=== PATIENT | female | born 2000 | race Caucasian/White ===

== ENCOUNTER 2021-06-21 20:50 | Outpatient (CLI) | payer OTHER ==
[2021-06-21] MEDS ORDERED: LACTATED RINGERS 1,000 ML IV SCH (21:15)
[2021-06-21 21:32] LABS: Basophils % (A) 0 %; Eosinophils # (A) 0.2 k/uL (0-0.7); Eosinophils % (A) 1 %; HCT 31.1 % (34.0-46.0); HGB 10.4 gm/dL (11.4-16.0); Lymphocytes # (A) 1.7 k/uL (1.0-4.8); Lymphocytes % (A) 15 %; MCH 31.4 pg (25.0-35.0); MCHC 33.4 g/dL (31.0-37.0); Mean Platelet Volume 10.8; Monocytes # (A) 0.5 k/uL (0-1.0); Monocytes % (A) 4 %; Neutrophils # (A) 8.7 k/uL (1.3-7.7); Neutrophils % (A) 77 %; Platelet Count 202 k/uL (150-450); RBC 3.31 m/uL (3.80-5.40); RDW 13.1 % (11.5-15.5); WBC 11.4 k/uL (3.8-10.6)
[2021-06-21 21:41] LABS: ALT 19 U/L (4-34); AST 29 U/L (14-36); African American GFR (CKD) >90 (>60 ml/min/1.73 sqM); Blood Urea Nitrogen 15 mg/dL (7-17); LDH 533 U/L (313-618); Non-African American GFR(CKD) >90 (>60 ml/min/1.73 sqM); Uric Acid 6.8 mg/dL (3.7-7.4)
[2021-06-21 21:45] LABS: Appearance,Urine Clear (Clear); Bilirubin,Urine Negative (Negative); Blood,Urine Negative (Negative); Color,Urine Colorless; Glucose,Urine (UA) Negative (Negative); Ketones,Urine Negative (Negative); Leukocyte Esterase,Urine Negative (Negative); Nitrite,Urine Negative (Negative); PH, Urine 6.5 (5.0-8.0); Protein,Urine 2+ (Negative); Specific Gravity,Urine 1.007 (1.001-1.035); Urobilinogen,Urine <2.0 mg/dL (<2.0); WBC,Urine 1 /hpf (0-5)
--- NOTE | 2021-06-21 22:11 | US ---
EXAMINATION TYPE: US OB >= 14 wk fetus DATE OF EXAM: 06/21/2021 COMPARISON: None CLINICAL HISTORY: Complete OB ultrasound for bleeding TECHNIQUE: Transabdominal (TA) GESTATIONAL AGE / DATING Physician Established: (32 weeks/4 days) EDC: 08/12/2021 Dates by LMP: LMP unknown Dates by First Scan: No previous this is first scan Dates by Current Scan: (33 weeks/6 days) EDC: 08/03/2021 SURVEY IUP: Single PLACENTA: Anterior PREVIA: No Previa KAROLINA: 16.9 cm Normal CERVICAL LENGTH (transabdominal: norm > 3.0cm): 3.3 cm BIOMETRY PRESENTATION: Vertex LIE: Longitudinal BPD: 8.7 cm 35 weeks / 0 days HC: 30.9 cm 34 weeks / 4 days AC: 29.1 cm 33 weeks / 1 days FL: 6.2 cm 32 weeks / 2 days ESTIMATED WEIGHT IN GRAMS: 2123 grams ESTIMATED WEIGHT IN LBS/OZ: 4 lbs. 11 oz. WEIGHT PERCENTAGE BASED ON ESTABLISHED DATES: 58% HC/AC: 1.06 Normal FL/AC: 21% Normal HEART RATE: 142 bpm RHYTHM: Normal IMPRESSION: No evidence of placenta previa or placental abruption. Amniotic fluid appears normal. No complicating process seen.
[2021-06-21 22:54] LABS: Protein/Creatinine Ratio,Urine 8.771
[2021-06-21] MEDS ORDERED: MAGNESIUM SULFATE-WATER PMX 20 GM in WATER FOR INJECTION 1 500ML.BAG IV SCH (23:00)
[2021-06-21] MEDS ORDERED: MAGNESIUM SULFATE-D5W PMX 1 GM in DEXTROSE/WATER 1 100ML.BAG IVPB SCH (23:00)
[2021-06-21] MEDS ORDERED: MAGNESIUM SULFATE-WATER PMX 4 GM in WATER FOR INJECTION 1 100ML.BAG IVPB STA (23:04)
[2021-06-21] MEDS ORDERED: BETAMET ACET-BETAMETH SOD PHOS 6 MG/ML MDV IM SCH (23:15)
--- NOTE | 2021-06-21 23:44 | P.HPOB ---
History of Present Illness H&P Date: 06/21/21 Chief Complaint: painless vaginal bleeding, pre-eclampsia 20-year-old presents at 32 weeks and 4 days complaining of painless vaginal bleeding starting at 2030 this evening. She is pam every 2-4 minutes but not feeling them. Her cervix is fingertip, 60% effaced, and -3 station. heart tones are 135 with moderate variability and reactive, category 1. Her blood pressures were found to be elevated and preeclamptic labs were run. All labs were normal except for PCR ratio of 8.77 with 2+ protein from a straight cath of urine. Ultrasound showed the baby to be 2123 g, 16 cm KAROLINA, vertex, and 50th percentile and no acute process of the placenta, no pr evia. Patient does have a B- blood type but did receive program at 28 weeks gestation. Review of Systems All systems: negative Constitutional: Denies chills, Denies fever Eyes: denies blurred vision, denies pain Ears, nose, mouth and throat: Denies headache, Denies sore throat Cardiovascular: Denies chest pain, Denies shortness of breath Respiratory: Denies cough Gastrointestinal: Denies abdominal pain, Denies diarrhea, Denies nausea, Denies vomiting Genitourinary: Denies dysuria, Denies hematuria Musculoskeletal: Denies myalgias Integumentary: Denies pruritus, Denies rash Neurological: Denies numbness, Denies weakness Psychiatric: Denies anxiety, Denies depression Endocrine: Denies fatigue, Denies weight change Past Medical History Past Medical History: No Reported History History of Any Multi-Drug Resistant Organisms: None Reported Past Surgical History: Ear Surgery Smoking Status: Never smoker Medications and Allergies Home Medications Medication Instructions Recorded Confirmed Type Pnv,Calcium 72/Iron/Folic Acid 1 tab PO DAILY 06/21/21 06/21/21 History [ Plus Tablet] Sertraline HCl [Zoloft] 50 mg PO DAILY 06/21/21 06/21/21 History Allergies Allergy/AdvReac Type Severity Reaction Status Date / Time No Known Allergies Allergy Verified 06/21/21 20:53 Exam Osteopathic Statement: *. No significant issues noted on an osteopathic structural exam other than those noted in the History and Physical/Consult. Intake and Output 06/21/21 06/21/21 06/22/21 14:59 22:59 06:59 Other: Weight 77.111 kg Heart: Regular rate and rhythm Lungs: Clear to auscultation bilaterally Abdomen: Soft, nontender Extremities: Negative Homans sign Results Result Diagrams: 06/21/21 21:24 06/21/21 21:24 Abnormal Lab Results - Last 24 Hours (Table) 06/21/21 06/21/21 Range/Units 21:24 21:24 WBC 11.4 H (3.8-10.6) k/uL RBC 3.31 L (3.80-5.40) m/uL Hgb 10.4 L (11.4-16.0) gm/dL Hct 31.1 L (34.0-46.0) % Neutrophils # 8.7 H (1.3-7.7) k/uL Urine Protein 2+ H (Negative) Assessment and Plan (1) 32 weeks gestation of Current Visit: Yes Status: Acute Code(s): Z3A.32 - 32 WEEKS GESTATION OF SNOMED Code(s): 0618174 (2) Vaginal bleeding in Current Visit: Yes Status: Acute Code(s): O46.90 - ANTEPARTUM HEMORRHAGE, UNSPECIFIED, UNSPECIFIED TRIMESTER SNOMED Code(s): 23159030713574770 (3) Pre-eclampsia Current Visit: Yes Status: Acute Code(s): O14.90 - UNSPECIFIED PRE- ECLAMPSIA, UNSPECIFIED TRIMESTER SNOMED Code(s): 720994434 Plan: 1. I had a long discussion with this patient and her mother about her condition of preeclampsia and why that may have caused the vaginal bleeding. This started 4 g bolus of magnesium sulfate and then 2 g an hour of an infusion. 2. Celestone injection 3. Transfer to tertiary facility where they can care for her : [facility] accepted transfer
[2021-06-21] MEDS ORDERED: LABETALOL 5 MG/ML VIAL MDV IVP STA (23:58)
[2021-06-22 00:34] VITALS: BP 143/97; PULSE 96; RESP 16; TEMP 97.5
--- NOTE | 2021-06-22 17:24 | P.MSEPDOC ---
Presenting Problems - Arrival Data Date of Arrival on Unit: 06/22/21 Time of Arrival on Unit: 20:50 Mode of Transport: Ambulatory - Complaint OB-Reason for Admission/Chief Complaint: Vaginal Bleeding Comment: Patient states is bleeding, states about 30 minutes ago she thought she was. experiencing discharge and noted large amounts of bright red vaginal bleeding. Patient denies abdominal pain. Patient denies intercourse in the last 24 hours. Patient states she was laying in bed when this started. Medical History - Information : 1 Para: 0 Term: 0 : 0 Abortions: Spontaneous or Elective: 0 Number of Living Children: 0 - Gestational Age Gestational Age by MADONNA (wks/days): 32 Weeks and 5 Days Review of Systems - Review of Systems Constitutional: No problems Breast: No problems ENT: No problems Cardiovascular: No problems Respiratory: No problems Gastrointestinal: No problems Genitourinary: No problems Musculoskeletal: No problems Neurological: No problems Skin: No problems Vital Signs - Temperature Temperature: 97.5 F Temperature Source: Temporal Artery Scan - Pulse Pulse Oximetery Pulse Rate: 96 Pulse Assessment Method: Pulse Oximetry - Respirations Respiratory Rate: 16 Oxygen Delivery Method: Room Air O2 Sat by Pulse Oximetry: 97 - Blood Pressure Sitting Blood Pressure: 143/97 Blood Pressure Mean: 112 Blood Pressure Source: Automatic Cuff Medical Screen Scoring - Cervical Exam Dilation (cm): 0 Effacement (%): 60 Station: -2 Membranes: Intact - Uterine Contractions Frequency From (mins): 2 Frequency To (mins): 4 Duration From (seconds): 80 Duration To (seconds): 100 Intensity: Mild Resting: Soft to palpation - Assessment - Baby A Baseline FHR: 140 Heart Rate - NICHD Category: Category I (Normal) Physician Notification - Physician Notified Physician Notified Date: 06/22/21 Physician Notified Time: 21:00 Physician: Coco Sanabria New Order Received: Yes - Notification Comment Comment: Dr. Sanabria orders to have PIH labs done at this time, to straight cath patient for a urine, initiate iv access and run LR at a slow rate. Physician states to order a complete ob ultrasound. at 2306 Physician states she is coming in for transfer. Orders celestone 12mg IM to be given at this time. Initiate 4 mg bolus of magnisum sulfate at this time. Then a 2gm maintance dose after. Maternal Triage Index - Urgent/Priority 2 Urgent Priority 2: Yes Provider Notified: Coco Sanabria Provider Notified Time: 21:00 Criteria Met for Priority 2: 32 4/7 , presents with active bright red bleeding. Patient denies abdominal pain or feeling contractions, bleeding noted to be trickling. Patient's blood pressure: 143/97 on arrival, non-symptomatic. Repeat blood pressure: 148/100. Disposition - Disposition OB Disposition: Transfer to other dept./facility Transferred to:: [facility] Discharge Date: 06/22/21 Discharge Time: 00:34 I agree with the RN Medical Screening Exam: Yes Case reviewed; plan agreed upon as documented in EMR&OBIX.: Yes Diagnosis: SEVERE PRE-ECLAMPSIA, THIRD TRIMESTER
== END 2021-06-22 00:43 | disposition short-term general hospital (02) ==
LOC: FBPOP 20:50
PROVIDERS: ATTEND Obstetrics & Gynecology
DX: O14.93 Unspecified pre-eclampsia, third trimester (principal); O46.93 Antepartum hemorrhage, unspecified, third trimester; Z3A.32 32 weeks gestation of pregnancy
CPT/HCPCS: 59025; 99215; 96361; 96365; 96366; 96375; 51701; 96372; 82570; 84156; 82565; 83615; 84450; 84460; 84520; 84550; 85025; 81001; 76805; J3475 ×2; J0702

== ENCOUNTER → 2023-03-23 | Outpatient (CLI) | payer BC | END | disposition home or self-care (01) | LOC: LABWHC1 09:09 | PROVIDERS: ATTEND Obstetrics & Gynecology | DX: O99.810 Abnormal glucose complicating pregnancy (principal); Z3A.00 Weeks of gestation of pregnancy not specified ==

== ENCOUNTER 2023-04-22 11:09 | Outpatient (CLI) | payer BC ==
[2023-04-22 11:52] LABS: Appearance,Urine Clear (Clear); Bacteria,Urine Rare /hpf; Bilirubin,Urine Negative (Negative); Blood,Urine Negative (Negative); Color,Urine Yellow; Glucose,Urine (UA) Negative (Negative); Hyaline Casts,Urine 1 /lpf (0-2); Ketones,Urine Negative (Negative); Leukocyte Esterase,Urine Trace (Negative); Mucus,Urine Rare /hpf; Nitrite,Urine Negative (Negative); PH, Urine 6.5 (5.0-8.0); Protein,Urine Trace (Negative); RBC,Urine 1 /hpf (0-5); Specific Gravity,Urine 1.022 (1.001-1.035); Squamous Epithelial Cell,Urine 2 /hpf (0-4); Urobilinogen,Urine <2.0 mg/dL (<2.0); WBC,Urine 3 /hpf (0-5)
[2023-04-22 14:28] VITALS: BP 112/71; PULSE 118; RESP 17; TEMP 97.3
--- NOTE | 2023-04-22 19:55 | P.MSEPDOC ---
Presenting Problems - Arrival Data Date of Arrival on Unit: 04/22/23 Time of Arrival on Unit: 11:09 Mode of Transport: Ambulatory - Complaint OB-Reason for Admission/Chief Complaint: Acute Nausea/Vomiting, Visual Disturbances, Dizziness Comment: pt presents to triage for visual changes with spots, dizziness, and n/v, vomiting x 2 today since this am Medical History - Information : 2 Para: 1 Term: 0 : 1 Abortions: Spontaneous or Elective: 0 Number of Living Children: 1 - Gestational Age Gestational Age by MADONNA (wks/days): 33 Weeks and 3 Days - History Complications: Prior Comment: hx of preeclampsia with 1st delivery at 33 weeks Review of Systems - Review of Systems Constitutional: No problems Breast: No problems ENT: No problems Cardiovascular: No problems Respiratory: No problems Gastrointestinal: No problems Genitourinary: No problems Musculoskeletal: No problems Neurological: No problems Skin: No problems Vital Signs - Temperature Temperature: 97.3 F Temperature Source: Temporal Artery Scan - Pulse Right Brachial Pulse Rate: 118 Pulse Assessment Method: Pulse Oximetry - Respirations Respiratory Rate: 17 Oxygen Delivery Method: Room Air O2 Sat by Pulse Oximetry: 99 - Blood Pressure Right Arm Blood Pressure: 112/71 Blood Pressure Mean: 84 Blood Pressure Source: Automatic Cuff Medical Screen Scoring - Uterine Contractions Intensity: Mild Resting: Soft to palpation - Assessment - Baby A Baseline FHR: 140 Heart Rate - NICHD Category: Category I (Normal) NST: Reactive Physician Notification - Physician Notified Physician Notified Date: 04/22/23 Physician Notified Time: 11:42 Physician: Kirstin Castro New Order Received: Yes - Notification Comment Comment: UA sent, results reported to Dr. Castro, reactive nst, no nausea at presesnt despite vomiting x 2 today, pt has scheduled appt on Wednesday with Dr. Castro in the office Maternal Triage Index - Maternal Triage Index Presenting for scheduled procedure w/no complaint: No - Stat/Priority 1 Stat Priority 1: No - Urgent/Priority 2 Urgent Priority 2: Yes Provider Notified: Kirstin Castro Provider Notified Time: 11:42 Criteria Met for Priority 2: pt presents to triage for visual changes with spots, dizziness, and n/v, vomiting x 2 today since this am, hx of 33 week delivery due to preeclampsia Disposition - Disposition OB Disposition: Triage, Discharge to home, Written follow up instructions reviewed Discharge Date: 04/22/23 Discharge Time: 12:09 I agree with the RN Medical Screening Exam: Yes Case reviewed; plan agreed upon as documented in EMR&OBIX.: Yes Diagnosis: RELATED CONDITIONS, UNSPECIFIED, THIRD TRIMESTER
== END 2023-04-22 12:09 | disposition home or self-care (01) ==
LOC: FBPOP 11:09
PROVIDERS: ATTEND Obstetrics & Gynecology
DX: O26.93 Pregnancy related conditions, unspecified, third trimester (principal); Z3A.33 33 weeks gestation of pregnancy
CPT/HCPCS: 59025; 81001; 99213

== ENCOUNTER 2023-05-28 00:43 | Outpatient (CLI) | payer BC ==
[2023-05-28 03:41] VITALS: BP 127/68; PULSE 102; RESP 16; TEMP 97.3
--- NOTE | 2023-06-16 07:40 | P.MSEPDOC ---
Presenting Problems - Arrival Data Date of Arrival on Unit: 05/28/23 Time of Arrival on Unit: 00:43 Mode of Transport: Ambulatory - Complaint OB-Reason for Admission/Chief Complaint: Possible Onset of Labor Comment: Patient arrives to triage with c/o. contractions that began at 2230, minutes apart,. rated at a 6/10. Medical History - Information : 2 Para: 1 Term: 0 : 1 Abortions: Spontaneous or Elective: 0 Number of Living Children: 1 - Gestational Age Gestational Age by MADONNA (wks/days): 38 Weeks and 4 Days - History Complications: Prior , Other Comment: Anemia Review of Systems - Review of Systems Constitutional: No problems Breast: No problems ENT: No problems Cardiovascular: No problems Respiratory: No problems Gastrointestinal: No problems Genitourinary: No problems Musculoskeletal: No problems Neurological: No problems Skin: No problems Vital Signs - Temperature Temperature: 97.3 F Temperature Source: Temporal Artery Scan - Pulse Right Brachial Pulse Rate: 102 Pulse Assessment Method: Automatic Cuff - Respirations Respiratory Rate: 16 Oxygen Delivery Method: Room Air O2 Sat by Pulse Oximetry: 99 - Blood Pressure Right Arm Blood Pressure: 127/68 Blood Pressure Mean: 87 Blood Pressure Source: Automatic Cuff Medical Screen Scoring - Cervical Exam Dilation (cm): 3.5 Effacement (%): 70 Station: -2 Membranes: Intact - Uterine Contractions Frequency From (mins): 2 Frequency To (mins): 4 Duration From (seconds): 50 Duration To (seconds): 80 Intensity: Mild Resting: Soft to palpation - Assessment - Baby A Baseline FHR: 140 Heart Rate - NICHD Category: Category I (Normal) NST: Reactive Physician Notification - Physician Notified Physician Notified Date: 05/28/23 Physician Notified Time: 03:02 Physician: Coco Sanabria New Order Received: Yes (discharge) - Notification Comment Comment: Dr. Sanabria called with report on patient. that presents for contractions. Cervical exam remains. unchanged after 2 hours, /-2. Patients pain has. decreased from 6/10 to 3/10. Contractions 2.5-4. minutes apart. Category 1 heart tones. Vital WNL. Patient approved for dsicharge. Maternal Triage Index - Maternal Triage Index Presenting for scheduled procedure w/no complaint: No - Stat/Priority 1 Stat Priority 1: No - Urgent/Priority 2 Urgent Priority 2: No - Prompt/Priority 3 Prompt Priority 3: No - Non-Urgent/Priority 4 Non-Urgent Priority 4: Yes Criteria Met for Priority 4: 38 01/08 contractions Disposition - Disposition OB Disposition: Discharge to home Discharge Date: 05/28/23 Discharge Time: 03:06 I agree with the RN Medical Screening Exam: Yes Case reviewed; plan agreed upon as documented in EMR&OBIX.: Yes Diagnosis: PRIMARY INADEQUATE CONTRACTIONS
== END 2023-05-28 03:06 ==
LOC: FBPOP 00:43
PROVIDERS: ATTEND Obstetrics & Gynecology
DX: O62.0 Primary inadequate contractions (principal); Z3A.38 38 weeks gestation of pregnancy
CPT/HCPCS: 59025; 99213

== ENCOUNTER 2023-06-02 12:09 | Inpatient (IN) | payer BC ==
[2023-06-02] MEDS ORDERED: CARBOPROST TROMETHAMINE 250 MCG/ML 1 ML AMP IM PRN (12:38)
[2023-06-02] MEDS ORDERED: TERBUTALINE 1 MG/ML VIAL SQ PRN (12:38)
[2023-06-02] MEDS ORDERED: LIDOCAINE 0.5% (PF) 5 MG/ML (50 ML SDV) SQ PRN (12:38)
[2023-06-02] MEDS ORDERED: OXYTOCIN 10 UNIT/ML 1 ML VIAL IM PRN (12:38)
[2023-06-02] MEDS ORDERED: METHYLERGONOVINE 0.2 MG/ML 1 ML AMP IM PRN (12:38)
[2023-06-02] MEDS ORDERED: TRANEXAMIC 1,000 MG/100ML-NACL 1,000 MG in EMPTY BAG 1 BAG IV PRN (12:38)
[2023-06-02] MEDS ORDERED: miSOPROStoL 200 MCG TAB PO PRN (12:38)
[2023-06-02] MEDS ORDERED: LACTATED RINGERS 1,000 ML IV SCH (12:45)
[2023-06-02] MEDS ORDERED: OXYTOCIN 30 UNITS/500 ML NS 30 UNIT in SALINE 1 500ML.BAG IV SCH (12:45)
[2023-06-02] MEDS: LACTATED RINGERS 1,000 ML IV SCH ×3 (13:07→15:34)
[2023-06-02 13:16] LABS: Anisocytosis Slight; Basophils % (A) 0 %; Eosinophils # (A) 0.1 k/uL (0-0.7); Eosinophils % (A) 1 %; HCT 38.4 % (34.0-46.0); HGB 12.9 gm/dL (11.4-16.0); Lymphocytes # (A) 1.2 k/uL (1.0-4.8); Lymphocytes % (A) 11 %; MCH 29.2 pg (25.0-35.0); MCHC 33.5 g/dL (31.0-37.0); MCV 87.1 fL (80.0-100.0); Mean Platelet Volume 9.8; Monocytes # (A) 0.4 k/uL (0-1.0); Monocytes % (A) 4 %; Neutrophils # (A) 8.9 k/uL (1.3-7.7); Neutrophils % (A) 82 %; Platelet Count 172 k/uL (150-450); RBC 4.41 m/uL (3.80-5.40); RDW 18.8 % (11.5-15.5); WBC 10.9 k/uL (3.8-10.6)
--- NOTE | 2023-06-02 16:57 | P.HPOB ---
History of Present Illness H&P Date: 06/02/23 Chief Complaint: Labor 22 year old presents at 39 weeks 2 days complaining of contractions every 3 minutes. Her cervix is 5-6/80/-1. heart tones 135 with moderate v ariability and reactive. Review of Systems All systems: negative Constitutional: Denies chills, Denies fever Eyes: denies blurred vision, denies pain Ears, nose, mouth and throat: Denies headache, Denies sore throat Cardiovascular: Denies chest pain, Denies shortness of breath Respiratory: Denies cough Gastrointestinal: Denies abdominal pain, Denies diarrhea, Denies nausea, Denies vomiting Genitourinary: Denies dysuria, Denies hematuria Musculoskeletal: Denies myalgias Integumentary: Denies pruritus, Denies rash Neurological: Denies numbness, Denies weakness Psychiatric: Denies anxiety, Denies depression Endocrine: Denies fatigue, Denies weight change Past Medical History Past Medical History: No Reported History History of Any Multi-Drug Resistant Organisms: None Reported Past Surgical History: Ear Surgery Past Anesthesia/Blood Transfusion Reactions: No Reported Reaction Past Psychological History: Anxiety Smoking Status: Never smoker Past Alcohol Use History: None Reported Past Drug Use History: None Reported - Past Family History Mother Family Medical History: No Reported History Medications and Allergies Home Medications Medication Instructions Recorded Confirmed Type Vit No.180/Iron/Folic 1 tab PO DAILY 06/21/21 06/02/23 History [ Plus Tablet] Sertraline HCl [Zoloft] 50 mg PO DAILY 06/21/21 06/02/23 History Aspirin [Children's Aspirin] 81 mg PO DAILY 04/22/23 05/28/23 History Ferrous Sulfate [Iron] 325 mg PO DAILY 04/22/23 06/02/23 History Allergies Allergy/AdvReac Type Severity Reaction Status Date / Time No Known Allergies Allergy Verified 06/02/23 12:20 Exam Osteopathic Statement: *. No significant issues noted on an osteopathic structural exam other than those noted in the History and Physical/Consult. Vital Signs Temp Pulse Resp BP Pulse Ox 06/02/23 12:40 97.5 F L 95 17 126/79 97 06/02/23 12:20 97.5 F L 95 17 126/79 97 Intake and Output 06/02/23 06/02/23 06/02/23 06:59 14:59 22:59 Other: # Voids 1 Weight 77.111 kg Heart:RRR Lungs: CTAB Abdomen: soft, nontender Extremeties: neg sally's Results Result Diagrams: 06/02/23 13:00 Abnormal Lab Results - Last 24 Hours (Table) 06/02/23 Range/Units 13:00 WBC 10.9 H (3.8-10.6) k/uL RDW 18.8 H (11.5-15.5) % Neutrophils # 8.9 H (1.3-7.7) k/uL Assessment and Plan (1) Normal labor Current Visit: Yes Status: Acute Code(s): O80 - ENCOUNTER FOR FULL-TERM UNCOMPLICATED DELIVERY; Z37.9 - OUTCOME OF DELIVERY, UNSPECIFIED SNOMED C ode(s): [id number] Plan: 1. admit to [facility] 2. anticipate normal vaginal delivery
[2023-06-02] MEDS ORDERED: diphenhydrAMINE 25 MG CAP PO PRN (20:40)
[2023-06-02] MEDS ORDERED: diphenhydrAMINE 50 MG/ML 1 ML VIAL IVP PRN ×2 (20:40)
[2023-06-02] MEDS ORDERED: HYDROCORTISONE 2.5% RECTAL CREAM 30 GM TUBE RECTAL PRN (20:40)
[2023-06-02] MEDS ORDERED: ZOLPIDEM 5 MG TAB PO PRN (20:40)
[2023-06-02] MEDS ORDERED: BENZOCAINE/MENTHOL SPRAY 1 GM/SPRAY AEROSOL TOPICAL PRN (20:40)
[2023-06-02] MEDS ORDERED: LANOLIN CREAM 5 GM TUBE TOPICAL PRN (20:40)
[2023-06-02] MEDS ORDERED: diphenhydrAMINE 50 MG CAP PO PRN (20:40)
[2023-06-02] MEDS ORDERED: SIMETHICONE 80 MG CHEWABLE PO PRN (20:40)
[2023-06-02] MEDS ORDERED: ACETAMINOPHEN TAB 325 MG TAB PO PRN (20:52)
[2023-06-02] MEDS: IBUPROFEN 600 MG TAB PO SCH (21:31)
[2023-06-03] MEDS: SERTRALINE 50 MG TAB PO SCH ×2 (02:50→21:18)
[2023-06-03] MEDS ORDERED: Rhogam IMMUNE GLOBULIN 1,500 UNIT/1 ML IM ONE (02:59)
[2023-06-03] MEDS: IBUPROFEN 600 MG TAB PO SCH ×4 (03:11→21:18)
[2023-06-03 06:08] LABS: Anisocytosis Slight; Basophils % (A) 0 %; Eosinophils # (A) 0.1 k/uL (0-0.7); Eosinophils % (A) 1 %; HCT 34.1 % (34.0-46.0); HGB 11.9 gm/dL (11.4-16.0); Lymphocytes % (A) 10 %; MCH 30.6 pg (25.0-35.0); MCHC 35.1 g/dL (31.0-37.0); MCV 87.2 fL (80.0-100.0); Mean Platelet Volume 9.4; Microcytosis Slight; Monocytes # (A) 0.5 k/uL (0-1.0); Monocytes % (A) 5 %; Neutrophils % (A) 82 %; Platelet Count 161 k/uL (150-450); RBC 3.91 m/uL (3.80-5.40); RDW 18.9 % (11.5-15.5); WBC 9.8 k/uL (3.8-10.6)
--- NOTE | 2023-06-03 07:54 | P.PROBDLV ---
Vaginal Delivery Note - . Vaginal Delivery Note: 22 year old presents at 39 weeks 2 days complaining of contractions every 3 minutes. Her cervix is 5-6/80/-1. heart tones 135 with moderate variability and reactive. Amniotomy performed at 1313 and clear fluid noted. She was uncomfortable and did get an epidural. She required some Pitocin augmentation and her cervix was completely dilated at 1809. She pushed, delivered a viable female infant over intact perineum under epidural anesthesia at 1905. Head delivered OA, nuchal cord 1 easily reduced, anterior shoulder delivered gentle downward guidance followed by posterior shoulder and rest of body. Nose and mouth bulb suctioned, cord clamped and cut, infant placed on mother's abdomen. Apgars 7 at 1 minute 8 at 5 minutes and 9 at 10 minutes. Weight 8 lbs. 2 oz. Placenta delivered spontaneously, intact with three-vessel cord. Vagina, cervix, perineum inspected. First-degree midline laceration was repaired with 3-0 Vicryl. Estimated blood loss 100 mL. Mother and baby in stable condition.
--- NOTE | 2023-06-03 07:56 | P.DS ---
Providers Date of admission: 06/02/23 12:30 Expected date of discharge: 06/03/23 Attending physician: Kirstin Castro Primary care physician: Stated None - Discharge Diagnosis(es) (1) Normal labor Current Visit: Yes Status: Resolved (2) Normal vaginal delivery Current Visit: Yes Status: Acute Hospital Course: Patient presented in active labor. She underwent a normal vaginal delivery. course was uneventful. She denies nausea, vomiting, chest pain, shortness of breath or calf pain. Patient will be discharged home day #1 in stable condition to follow-up with Dr. Castro in 6 weeks. Plan - Discharge Summary New Discharge Prescriptions: New Ibuprofen [Motrin] 600 mg PO Q6H #30 tab No Action Ferrous Sulfate [Iron] 325 mg PO DAILY Sertraline HCl [Zoloft] 50 mg PO DAILY Vit No.180/Iron/Folic [ Plus Tablet] 1 tab PO DAILY Aspirin [Children's Aspirin] 81 mg PO DAILY Discharge Medication List Vit No.180/Iron/Folic [ Plus Tablet] 1 tab PO DAILY 06/21/21 [History] Sertraline HCl [Zoloft] 50 mg PO DAILY 06/21/21 [History] Aspirin [Children's Aspirin] 81 mg PO DAILY 04/22/23 [History] Ferrous Sulfate [Iron] 325 mg PO DAILY 04/22/23 [History] Ibuprofen [Motrin] 600 mg PO Q6H #30 tab 06/03/23 [Rx] Follow up Appointment(s)/Referral(s): Kirstin Castro DO [Doctor of Osteopathic Medicine] - 6 Weeks Discharge Disposition: HOME SELF-CARE
[2023-06-03] MEDS: SENNOSIDES-DOCUSATE SODIUM 1 EACH TAB PO SCH ×2 (08:04→21:18)
[2023-06-03 10:58] VITALS: RESP 20
[2023-06-03 12:16] VITALS: TEMP 98.4
[2023-06-03 16:10] VITALS: BP 119/75; PULSE 81
[2023-06-03] MEDS: LACTATED RINGERS 1,000 ML IV SCH (21:17)
== END 2023-06-03 20:15 | disposition home or self-care (01) | DRG 807 ==
LOC: FBPOP 12:09 → 4FBP 12:30
PROVIDERS: ADMIT Obstetrics & Gynecology; ATTEND Obstetrics & Gynecology
PROC: 10E0XZZ Delivery of Products of Conception, External Approach (ICD-10-PCS; principal; 2023-06-02)
PROC: 0HQ9XZZ Repair Perineum Skin, External Approach (ICD-10-PCS; 2023-06-02)
PROC: 10907ZC Drainage of Amniotic Fluid, Therapeutic from Products of Conception, Via Natural or Artificial Opening (ICD-10-PCS; 2023-06-02)
PROC: 3E033VJ Introduction of Other Hormone into Peripheral Vein, Percutaneous Approach (ICD-10-PCS; 2023-06-02)
DX: O69.81X0 Labor and delivery complicated by cord around neck, without compression, not applicable or unspecified (principal); Z37.0 Single live birth; F41.9 Anxiety disorder, unspecified; O70.0 First degree perineal laceration during delivery; O99.344 Other mental disorders complicating childbirth; Z3A.39 39 weeks gestation of pregnancy; Z79.82 Long term (current) use of aspirin; Z79.899 Other long term (current) drug therapy
CPT/HCPCS: 59025; 85025; 85461; 86850; 86870; 86880; 86900; 86901; 99213